=== PATIENT | female | born 1985 | race Caucasian/White ===

== ENCOUNTER → 2017-04-22 | Outpatient (REF) | payer MEDICAID | LOC: M SFHCCLAY 13:44 | DX: L63.9 Alopecia areata, unspecified (principal) ==

== ENCOUNTER → 2017-07-08 | Outpatient (CLI) | payer MEDICAID ==
[~2017-07-08] MED LIST: E-Z-GAS II EFFERVESCENT PACKET (SODIUM BICARB./CITRIC ACID/SIMETHICONE) As Ordered; E-Z-HD 98% w/w 340GM SUSP BTL As Ordered; E-Z-PAQUE 96% w/w SUSP 176GM BTL As Ordered
== END ==
LOC: M RAD 09:17
DX: R13.10 Dysphagia, unspecified (principal)
CPT/HCPCS: 74220

== ENCOUNTER → 2023-04-15 | Outpatient (CLI) | payer MEDICAID | LOC: M CLY 15:38 | PROVIDERS: ATTEND Family Medicine | DX: J44.1 Chronic obstructive pulmonary disease with (acute) exacerbation (principal); Q33.6 Congenital hypoplasia and dysplasia of lung; Z53.9 Procedure and treatment not carried out, unspecified reason ==

== ENCOUNTER → 2024-09-14 | Outpatient (REF) | payer MEDICAID | LOC: M SFHCCLAY 11:09 | PROVIDERS: ATTEND Family Medicine | DX: R94.6 Abnormal results of thyroid function studies (principal) ==